=== PATIENT | female | born 1980 | race Caucasian/White ===

== ENCOUNTER 2020-04-27 07:16 | Outpatient (CLI) | payer OTHER ==
[2020-04-27] MEDS ORDERED: IOVERSOL 320 100 ML VIAL IVP ONE ×2 (07:30→10:16)
--- NOTE | 2020-04-27 11:45 | CT Report ---
PROCEDURE: SOFT TISSUE NECK W INDICATIONS: CHRONIC SORE THROAT CONTRAST: IV CONTRAST: Optiray 320 ml: 100 PO CONTRAST: *NO PO CONTRAST TECHNIQUE: After the administration of intravenous contrast, 3.0 mm axial sections acquired from the sella to th e aortic arch. Additional oblique axial 3.0 mm sections acquired through the pharynx. 3 mm thick co jaquelin reformats were generated. For radiation dose reduction, the following was used: automated exp osure control, adjustment of mA and/or kV according to patient size. COMPARISON: None. FINDINGS: Image quality: Excellent. Lymph nodes: No enlarged lymph nodes seen throughout the neck. Vessels: Visualized vasculature appears patent. Neck spaces: The oropharynx, nasopharynx, and pharynx demonstrate no mucosal lesions. The vocal cor ds, false vocal cords, pyriform sinuses, epiglottis, vallecula, and tongue base all appear normal. E xtramucosal spaces appear unremarkable. Glands: The parotid and submandibular glands appear normal. The thyroid is normal in size. Miscellaneous: Visualized brain and orbits appear normal. Lung apices appear clear. Superficial so ft tissues appear normal. Bones: No suspicious bony lesions. Visualized sinuses and mastoids appear unremarkable. IMPRESSION: 1. No mucosal-based mass. 2. No lymphadenopathy based on size criteria. 3. No soft tissue edema/inflammation or abscess. Reviewed by: Misty Martin MD, PhD on 04/27/2020 11:43 AM PST Approved by: Misty Martin MD, PhD on 04/27/2020 11:43 AM PST Station ID: [id number]
== END 2020-04-27 07:17 | disposition home or self-care (01) ==
LOC: DI 07:16
PROVIDERS: ATTEND Family Medicine
DX: J31.2 Chronic pharyngitis (principal); F17.290 Nicotine dependence, other tobacco product, uncomplicated
CPT/HCPCS: 70491; Q9967

== ENCOUNTER 2020-11-23 10:31 | Outpatient (CLI) | payer OTHER ==
[2020-11-23 16:12] LABS: ALBUMIN 4.3 g/dL (3.2-5.5); ALBUMIN/GLOBULIN RATIO 1.4 (1.0-2.2); BILIRUBIN,TOTAL 1.3 mg/dL (0.2-1.0); CALCIUM 9.4 mg/dL (8.5-10.3); CREATININE 0.7 mg/dL (0.4-1.0); POTASSIUM 3.9 mmol/L (3.5-5.0); TOTAL PROTEIN 7.3 g/dL (6.7-8.2)
[2020-11-23 16:22] LABS: THYROID STIMULATING HORMONE 0.53 uIU/mL (0.34-5.60)
[2020-11-23 16:25] LABS: FREE T3 3.4 pg/mL (2.5-3.9)
== END 2020-11-23 10:32 | disposition home or self-care (01) ==
LOC: LAB.S 10:31
PROVIDERS: ATTEND Family Medicine
DX: E55.9 Vitamin D deficiency, unspecified (principal); E53.8 Deficiency of other specified B group vitamins; E03.9 Hypothyroidism, unspecified
CPT/HCPCS: 36415; 80053; 82306; 82607; 84439; 84443; 84481

== ENCOUNTER 2020-12-31 11:52 | Outpatient (CLI) | payer OTHER ==
[2020-12-31 14:56] LABS: ALBUMIN 4.4 g/dL (3.2-5.5); ALBUMIN/GLOBULIN RATIO 1.3 (1.0-2.2); BILIRUBIN,TOTAL 2.1 mg/dL (0.2-1.0); CREATININE 0.7 mg/dL (0.4-1.0); POTASSIUM 3.9 mmol/L (3.5-5.0); TOTAL PROTEIN 7.7 g/dL (6.7-8.2)
[2020-12-31 15:13] LABS: THYROID STIMULATING HORMONE 2.13 uIU/mL (0.34-5.60)
[2020-12-31 15:15] LABS: FREE T3 4.23 pg/mL (2.5-3.9); FREE T4 (FREE THYROXINE) 0.88 ng/dL (0.58-1.64)
== END 2020-12-31 11:53 | disposition home or self-care (01) ==
LOC: LAB.S 11:52
PROVIDERS: ATTEND Internal Medicine Endocrinology, Diabetes & Metabolism
DX: E06.3 Autoimmune thyroiditis (principal); E03.9 Hypothyroidism, unspecified; E55.9 Vitamin D deficiency, unspecified
CPT/HCPCS: 36415; 80053; 82306; 84439; 84443; 84481

== ENCOUNTER 2021-01-26 09:49 | Outpatient (CLI) | payer OTHER ==
[2021-01-26 14:43] LABS: ALBUMIN 4.5 g/dL (3.2-5.5); ALBUMIN/GLOBULIN RATIO 1.5 (1.0-2.2); BILIRUBIN,TOTAL 1.3 mg/dL (0.2-1.0); CALCIUM 9.4 mg/dL (8.5-10.3); CREATININE 0.8 mg/dL (0.4-1.0); POTASSIUM 3.7 mmol/L (3.5-5.0); TOTAL PROTEIN 7.5 g/dL (6.7-8.2)
[2021-01-26 14:59] LABS: THYROID STIMULATING HORMONE 1.65 uIU/mL (0.34-5.60)
[2021-01-26 15:00] LABS: FREE T4 (FREE THYROXINE) 0.92 ng/dL (0.58-1.64)
== END 2021-01-26 09:50 | disposition home or self-care (01) ==
LOC: LAB.S 09:49
PROVIDERS: ATTEND Internal Medicine Endocrinology, Diabetes & Metabolism
DX: E03.9 Hypothyroidism, unspecified (principal); E06.3 Autoimmune thyroiditis; E80.4 Gilbert syndrome
CPT/HCPCS: 36415; 80053; 84439; 84443; 84481